=== PATIENT | male | born 1960 | race Caucasian/White ===

== ENCOUNTER 2022-06-27 18:02 | Inpatient (IN) | payer MEDICARE, OTHER ==
[2022-06-27] MEDS ORDERED: PNEUMONIA PROTOCOL UTILIZED 1 EACH MISC PO PRN (19:26)
--- NOTE | 2022-06-27 19:27 | ED ---
General Adult HPI - General Chief complaint: Abdominal Pain Stated complaint: transfer, AAA surgery Time Seen by Provider: 06/27/22 18:05 Source: patient, family, RN/MD (Spoke with practitioner Yamil prior to patient transferred), EMS, RN notes reviewed Mode of arrival: EMS Limitations: no limitations - History of Present Illness Initial comments: Patient is a pleasant 59-year-old male presenting to the emergency Department as a transfer from [facility] secondary to concern for abdominal aortic aneurysm. Patient does have known history of this. Patient did have abdominal discomfort and did have computed tomography scan done showing increased size of abdominal aortic aneurysm. There is also noted pneumonia. Patient states discomfort is mild at this time. Patient did have temperature of 100.0. - Related Data Home Medications Medication Instructions Recorded Confirmed Losartan [Cozaar] 50 mg PO DAILY 12/10/15 12/28/15 Sertraline [Zoloft] 50 mg PO DAILY 12/10/15 12/28/15 amLODIPine [Norvasc] 5 mg PO DAILY 12/10/15 12/28/15 Allergies Allergy/AdvReac Type Severity Reaction Status Date / Time No Known Allergies Allergy Verified 12/28/15 09:10 Review of Systems ROS Statement: Those systems with pertinent positive or pertinent negative responses have been documented in the HPI. ROS Other: All systems not noted in ROS Statement are negative. Constitutional: Reports: as per HPI, fever Eyes: Denies: eye pain ENT: Denies: ear pain Respiratory: Reports: cough. Denies: dyspnea Cardiovascular: Denies: chest pain Endocrine: Denies: fatigue Gastrointestinal: Reports: as per HPI, abdominal pain Genitourinary: Denies: dysuria Musculoskeletal: Denies: back pain Skin: Denies: rash Neurological: Denies: weakness Past Medical History Past Medical History: Hypertension History of Any Multi-Drug Resistant Organisms: None Reported Past Surgical History: Hernia Repair, Orthopedic Surgery Additional Past Surgical History / Comment(s): HERNIA X3, LEFT SHOULDER Past Anesthesia/Blood Transfusion Reactions: No Reported Reaction Past Psychological History: Depression Past Alcohol Use History: Rare Additional Past Alcohol Use History / Comment(s): STARTED SMOKING AT AGE 18 SMOKES 1PPD Past Drug Use History: None Reported - Past Family History Mother Family Medical History: No Reported History General Exam Limitations: no limitations General appearance: alert, in no apparent distress Head exam: Present: normocephalic Eye exam: Present: normal appearance Neck exam: Present: normal inspection Respiratory exam: Present: normal lung sounds bilaterally Cardiovascular Exam: Present: regular rate, normal rhythm Expanded Peripheral pulses: 2+: Posterior Tibialis (R), Posterior Tibialis (L) GI/Abdominal exam: Present: soft, pulsatile mass. Absent: tenderness Extremities exam: Present: normal inspection Neurological exam: Present: alert. Absent: motor sensory deficit Psychiatric exam: Present: normal affect, normal mood Skin exam: Present: normal color Course Vital Signs 06/27/22 18:12 Temperature 98.3 F Pulse Rate 78 Respiratory 20 Rate Blood Pressure 140/92 O2 Sat by Pulse 98 Oximetry Medical Decision Making - Medical Decision Making Was pt. sent in by a medical professional or institution (, PA, MARINE DIESEL TECHNICIAN, urgent care, hospital, or retirement...) When possible be specific @ -Patient was sent from [facility]. Spoke with practitioner Yamil. Did you speak to anyone other than the patient for history (EMS, parent, family, police, friend...)? What history was obtained from this source @ -Spoke with Yamil from [facility] prior to transfer. I also did speak with Dr. Venkat erickson, who did go to evaluate patient. Did you review nursing and triage notes (agree or disagree)? Why? @ -I reviewed and agree with nursing and triage notes Were old charts reviewed (outside hosp., previous admission, EMS record, old EKG, old radiological studies, urgent care reports/EKG's, retirement records)? Report findings @ -Review chart from transfer from [facility] Differential Diagnosis (chest pain, altered mental status, abdominal pain women, abdominal pain men, vaginal bleeding, weakness, fever, dyspnea, syncope, he adache, dizziness, GI bleed, back pain, seizure, CVA, palpatations, mental health)? @ -Differential Abdominal Pain Men: Appendicitis, cholecystitis, diverticulosis, ischemic bowel, pancreatitis, hepatitis, UTI, gastroenteritis, AAA, incarcerated hernia, bowel obstruction, constipation, inflammatory bowel, hepatitis, peptic ulcer disease, splenic infarction, perforated viscus, testicular torsion, this is not meant to be an all-inclusive list EKG interpreted by me (3pts min.). @ -Sinus rhythm rate 68. Normal axis. Septal Q waved V1 and V2. nOn specific T waves. X-rays interpreted by me (1pt min.). @ -None done CT interpreted by me (1pt min.). @ -Reviewed report U/S interpreted by me (1pt. min.). @ -None done What testing was considered but not performed or refused? (CT, X-rays, U/S, labs)? Why? @ -None What meds were considered but not given or refused? Why? @ -None Did you discuss the management of the patient with other professionals (professionals i.e. DrMina, PA, MARINE DIESEL TECHNICIAN, lab, RT, psych nurse, social sciences instructor, wrapper operator, teacher, account officer, director of casework services)? Give summary @ -Case was discussed with practitioner Yamil at [facility] as well as Dr. Alesia guerrero. Case also discussed with practitioner Paris Cuadra, covering for Dr. Bloom, who will admit covering for Dr. Verma Was smoking cessation discussed for >3mins.? @ -I discussed smoking cessation for greater than 3 minutes. The risk of smoking were discussed with the patient including but not limited to risks of cancer, stroke, coronary artery disease and COPD. Also discussed with patient were multiple methods of quitting smoking. Lastly we discussed the financial cost of smoking. Was critical care preformed (if so, how long)? @ -No Were there social determinants of health that impacted care today? How? (Homelessness, low income, unemployed, alcoholism, drug addiction, transportation, low edu. Level, literacy, decrease access to med. care, long term, rehab)? @ -No Was there de-escalation of care discussed even if they declined (Discuss DNR or withdrawal of care, Hospice)? DNR status @ -No What co-morbidities impacted this encounter? (DM, HTN, Smoking, COPD, CAD, Cancer, CVA, ARF, Chemo, Hep., AIDS, mental health diagnosis, sleep apnea, morbid obesity)? @ -Patient also has pneumonia and history of AAA Was patient admitted / discharged? Hospital course, mention meds given and route, prescriptions, significant lab abnormalities, going to OR and other pertinent info. @ -Patient and family made aware of plan. Patient will be admitted. Undiagnosed new problem with uncertain prognosis? @ -No Drug Therapy requiring intensive monitoring for toxicity (Heparin, Nitro, Insulin, Cardizem)? @ -No Were any procedures done? @ -No Diagnosis/symptom? @ -One abdominal aortic aneurysm. 2 pneumonia Acute, or Chronic, or Acute on Chronic? @ -Acute on chronic, acute Uncomplicated (without systemic symptoms) or Complicated (systemic symptoms)? @ -Uncomplicated at this time Side effects of treatment? @ -No Exacerbation, Progression, or Severe Exacerbation? @ -Progression, na Poses a threat to life or bodily function? How? (Chest pain, USA, SC, pneumonia, PE, COPD, DKA, ARF, appy, cholecystitis, CVA, Diverticulitis, Homicidal, Suicidal, threat to staff... and all critical care pts) @ -Yes this poses a high threat to life Computed tomography scan from [facility] shows prerenal fusiform aneurysmal dilation up to 6.1 cm with neural thrombus. Right lower lobe medial airspace disease. Left distal superficial femoral artery short segment of occlusion with reconstitution. Patient did receive IV antibiotics prior to transfer. Disposition Clinical Impression: Abdominal aortic aneurysm, Pneumonia Disposition: ADMITTED IP TO THIS HOSP Is patient prescribed a controlled substance at d/c from ED?: No Referrals: Puma Kimble MD [Primary Care Provider] - 1-2 days Time of Disposition: 19:25
--- NOTE | 2022-06-27 20:39 | P.GSCN ---
History of Present Illness Consult date: 06/27/22 Reason for Consult: Enlarging AAA History of present illness: 61 year old gentleman with history of AAA who was previously followed by Dr. Gallardo with yearly ultrasounds presented to [facility] with acute onset of abdominal pain and worsening lower back pain. The last time he was seen in Dr. Gallardo's office was 4 years ago and at that time his AAA was 3.7 cm and when worked up at [facility] the CT with contrast demonstrated a 6.1cm AAA. He was seen in the ER at [facility] and due to the increase in size and his potential symptoms it was determined to transfer to [facility] for admission, medical clearance and endovascular treatment. The patient states his pain has improved since being seen in the ER. He denies any fevers, chills, chest pain or shortness of breath. Review of Systems All systems: negative (what is mentioned in the PMH or HPI) Past Medical History Past Medical History: Hypertension History of Any Multi-Drug Resistant Organisms: None Reported Past Surgical History: Hernia Repair, Orthopedic Surgery Additional Past Surgical History / Comment(s): HERNIA X3, LEFT SHOULDER Past Anesthesia/Blood Transfusion Reactions: No Reported Reaction Past Psychological History: Depression Past Alcohol Use History: Rare Additional Past Alcohol Use History / Comment(s): STARTED SMOKING AT AGE 18 SMOKES 1PPD Past Drug Use History: None Reported - Past Family History Mother Family Medical History: No Reported History Medications and Allergies Home Medications Medication Instructions Recorded Confirmed Type Losartan [Cozaar] 50 mg PO DAILY 12/10/15 06/27/22 History Sertraline [Zoloft] 50 mg PO DAILY 12/10/15 06/27/22 History amLODIPine [Norvasc] 10 mg PO DAILY 06/27/22 06/27/22 History Allergies Allergy/AdvReac Type Severity Reaction Status Date / Time No Known Allergies Allergy Verified 06/27/22 19:40 Surgical - Exam Vital Signs Temp Pulse Resp BP Pulse Ox 98.3 F 78 20 140/92 98 06/27/22 18:12 06/27/22 18:12 06/27/22 18:12 06/27/22 18:12 06/27/22 18:12 - General well developed, well nourished, no distress - Eyes PERRL - ENT normal pinna, normal nares - Neck no masses - Respiratory normal expansion, normal respiratory effort - Cardiovascular Rhythm: regular - Abdomen Abdomen: soft, non tender Hernia: none - Integumentary no rash, no growths - Neurologic normal coordination, normal sensation - Musculoskeletal normal gait - Psychiatric oriented to time, oriented to person, oriented to place, speech is normal Abdominal pulsatile mass noted Palpable femoral, DP and PT pulses Assessment and Plan Assessment: 1. AAA with possible rapid expansion 2. Chronic back pain Plan: Recommend admission for continued monitoring and pain control. Will need medical workup for clearance for EVAR Plan for EVAR later this week unless patient symptoms worsen.
[2022-06-27] MEDS: SODIUM CHLORIDE 0.9% 1,000 ML IV SCH (20:45)
[2022-06-28] MEDS: SODIUM CHLORIDE 0.9% 1,000 ML IV SCH (04:44)
--- NOTE | 2022-06-28 08:09 | XR ---
EXAMINATION TYPE: XR chest 2V DATE OF EXAM: 06/28/2022 7:11 AM COMPARISON: None TECHNIQUE: XR chest 2V Frontal and lateral views of the chest. CLINICAL INDICATION:Male, 61 years old with history of pneumonia; FINDINGS: Lungs/Pleura: There is no evidence of pleural effusion, focal consolidation, or pneumothorax. Pulmonary vascularity: Unremarkable. Heart/mediastinum: Cardiomediastinal silhouette is unremarkable. Musculoskeletal: No acute osseous pathology. IMPRESSION: No acute cardiopulmonary disease/process.
[2022-06-28 08:30] LABS: HCT 35.9 % (39.0-53.0); HGB 11.7 gm/dL (13.0-17.5); MCH 30.6 pg (25.0-35.0); MCHC 32.4 g/dL (31.0-37.0); MCV 94.3 fL (80.0-100.0); Mean Platelet Volume 6.9; Platelet Count 314 k/uL (150-450); RBC 3.81 m/uL (4.30-5.90); RDW 14.2 % (11.5-15.5); WBC 7.6 k/uL (3.8-10.6)
[2022-06-28 08:54] LABS: African American GFR (CKD) >90 (>60 ml/min/1.73 sqM); Anion Gap 6 mmol/L; Blood Urea Nitrogen 11 mg/dL (9-20); Calcium 8.5 mg/dL (8.4-10.2); Carbon Dioxide 24 mmol/L (22-30); Chloride 109 mmol/L (98-107); Glucose 90 mg/dL (74-99); Non-African American GFR(CKD) >90 (>60 ml/min/1.73 sqM); Potassium 4.6 mmol/L (3.5-5.1); Sodium 139 mmol/L (137-145)
--- NOTE | 2022-06-28 09:01 | P.PN ---
Subjective Progress Note Date: 06/28/22 Principal diagnosis: AAA She was seen and examined in the emergency room waiting for a bed on the unit. He states today he is feeling better. He has no abdominal pain or back pain. He denies any chest pain or shortness of breath. He has been afebrile. He states that he did have fevers chills the day before coming into the emergency department. Chest x-ray reports no acute cardiopulmonary disease or process. WBC 7.6 hemoglobin 11.7 platelet count 314,000, comprehensive panel currently pending. Patient is currently on ceftriaxone. Vital signs are stable respiratory rate 16, blood pressure 129 or 81 oxygen 97% on room air. Objective - Vital Signs Vital signs: Vital Signs Temp 98 F 06/28/22 03:23 Pulse 64 06/28/22 03:23 Resp 16 06/28/22 03:23 BP 129/81 06/28/22 03:23 Pulse Ox 97 06/28/22 07:38 FiO2 Intake & Output 06/27/22 06/28/22 06/28/22 18:59 06:59 18:59 Weight 66.224 kg Other: Voiding Method Toilet # Voids 1 - Exam General appearance: The patient is alert, oriented, appears in no acute distress. HET: Head is normocephalic and atraumatic. Neck: Supple. Heart: Regular. Lungs: Equal expansion, normal respiratory effort. Abdomen: Soft, nontender, pulsatile mass palpated, nondistended. Extremities: Normal skin color and turgor. No cyanosis, rash, ulceration, clubbing, or edema. Palpable femoral, PT and DP pulses. Good capillary refill.. Neurological: No focal deficits. Strength and sensation are grossly intact. Assessment and Plan Assessment: 1. AAA with possible rapid expansion 2. Chronic back pain 3. Nicotine dependence Plan: 1. Continue symptomatic and supportive care 2. Nicotine patch ordered 3. Patient may have a heart healthy diet 4. 2-D echocardiogram ordered 5. Will need medical clearance for planned endovascular abdominal aortic repair 06/30/2022 Thank you for this consultation, we will continue to follow. The impression and plan of care has been dictated as directed. Dr. Soliz I performed a history and examination of this patient, discussed the same with the dictator. I agree with the dictator's note ,documented as a scribe. Any additional findings or plans will be noted.
[2022-06-28] MEDS: SERTRALINE 50 MG TAB PO SCH (09:24)
[2022-06-28] MEDS: amLODIPine 10 MG TAB PO SCH (09:25)
[2022-06-28] MEDS: NICOTINE 21MG/24HR PATCH TRANSDERM SCH (09:25)
[2022-06-28] MEDS: LOSARTAN 50 MG TAB PO SCH (09:25)
[2022-06-28] MEDS: AZITHROMYCIN 500 MG TAB PO SCH (09:25)
[2022-06-28] MEDS ORDERED: ACETAMINOPHEN TAB 325 MG TAB PO PRN (09:53)
--- NOTE | 2022-06-28 15:43 | P.HPIM ---
History of Present Illness H&P Date: 06/28/22 This is a 61 year old male patient of Dr. Kimble, with medical history of hypertension, depression, daily tobacco use reports smoking 1 pack per day for the last 43 years. Has undergone hernia repair x 7. He presents to the emergency room from [facility] with concern for abdominal aortic aneurysm that has increased in size on CT scan performed at outside facility. He has known history of AAA, and presented with abdominal pain and lower back pain of acute onset to outside facility. AAA is noted to be at 6.1 cm in size with prior CT showing 3.7cm. He has followed with Dr. Gallardo in the past. CT also showed some opacity in the right lower lobe correlate for pneumonia and patient was febrile on admission with temperature of 100.0. He has remained afebrile since. Follow up chest xray showing no acute process at this facility. His white count is stable at 7.6, hemoglobin of 11.7, his chemistry panel is essentially unremarkable with chloride of 109 likely from receiving receiving IV fluids. He has been started on IV ceftriaxone and PO azithromycin empirically and resumed on home medications including losartan, amlodipine. Blood pressure remains stable today at 129/78. Will check a procalcitonin level and likely can stop antibiotics with no evidence for pneumonia at this time. He has been evaluated by vascular surgery and scheduled for endovascular abdominal aortic aneurysm repair on 06/30/[address] Fiore. Patient will be further evaluated for medical clearance, echocardiogram is pending at this time. REVIEW OF SYSTEMS: CONSTITUTIONAL: No fever, no malaise, no fatigue. HEENT: No recent visual problems or hearing problems. Denied any sore throat. CARDIOVASCULAR: No chest pain, orthopnea, PND, no palpitations, no syncope. PULMONARY: No shortness of breath, no cough, no hemoptysis. GASTROINTESTINAL: No diarrhea, no nausea, no vomiting, no abdominal pain. NEUROLOGICAL: No headaches, no weakness, no numbness. HEMATOLOGICAL: Denies any bleeding or petechiae. GENITOURINARY: Denies any burning micturition, frequency, or urgency. MUSCULOSKELETAL/RHEUMATOLOGICAL: Denies any joint pain, swelling, or any muscle pain. ENDOCRINE: Denies any polyuria or polydipsia. The rest of the 14-point review of systems is negative. PHYSICAL EXAMINATION: GENERAL: The patient is alert and oriented x3, not in any acute distress. Well developed, well nourished. HEENT: Pupils are round and equally reacting to light. EOMI. No scleral icterus. No conjunctival pallor. Normocephalic, atraumatic. No pharyngeal erythema. No thyromegaly. CARDIOVASCULAR: S1 and S2 present. No murmurs, rubs, or gallops. PULMONARY: Faint Expiratory wheezing right lower lobe ABDOMEN: Soft, nontender, nondistended, normoactive bowel sounds. Abdominal pulsatile mass noted on exam. No palpable organomegaly. MUSCULOSKELETAL: No joint swelling or deformity. EXTREMITIES: No cyanosis, clubbing, or pedal edema. NEUROLOGICAL: Gross neurological examination did not reveal any focal deficits. SKIN: No rashes. Assessment and Plan Assessment Abdominal aortic aneurysm 6.1 cm increasing in size Hypertension stable on current medications which will be continued at this time Right lower lobe opacity on outside CT scan with follow up xray negative for acute findings Current every day smoker counseled extensively on the importance of smoking cessation. Depression, not an active issue will continue on sertraline History of hernia repair x 7 Chronic back pain GI prophylaxis Plan Vascular surgery consultation and patient has been scheduled for aneurysm repair on Sunday06/30/21 Resume home medications Nicotine patch in place Patient has been started on pulmicort and albuterol as needed Procalcitonin level pending for now continue on IV antibiotics empirically Echocardiogram pending Aneurysm repair is considered an emergent surgery and despite the risk should be performed. Patient is considered a moderate operative risk combined with longstanding history of tobacco use. The impression and plan of care has been dictated by Kenya Valdez Nurse Practitioner as directed. Dr. Elena MD I have performed a history and physical examination and medical decision making of this patient, discussed the same with the dictator, and agree with the dictators assessment and plan as written, documented as a scribe. Based on total visit time, I have performed more than 50% of this visit. Past Medical History Past Medical History: Hypertension History of Any Multi-Drug Resistant Organisms: None Reported Past Surgical History: Hernia Repair, Orthopedic Surgery Additional Past Surgical History / Comment(s): HERNIA X3, LEFT SHOULDER Past Anesthesia/Blood Transfusion Reactions: No Reported Reaction Past Psychological History: Depression Smoking Status: Current every day smoker Past Alcohol Use History: Rare Additional Past Alcohol Use History / Comment(s): STARTED SMOKING AT AGE 18 SMOKES 1PPD Past Drug Use History: None Reported - Past Family History Mother Family Medical History: No Reported History Medications and Allergies Home Medications Medication Instructions Recorded Confirmed Type Losartan [Cozaar] 50 mg PO DAILY 12/10/15 06/27/22 History Sertraline [Zoloft] 50 mg PO DAILY 12/10/15 06/27/22 History amLODIPine [Norvasc] 10 mg PO DAILY 06/27/22 06/27/22 History Allergies Allergy/AdvReac Type Severity Reaction Status Date / Time No Known Allergies Allergy Verified 06/27/22 19:40 Physical Exam Vitals: Vital Signs Temp Pulse Pulse Resp BP BP Pulse Ox 06/28/22 09:19 60 15 129/78 97 06/28/22 07:38 97 06/28/22 03:23 98 F 64 16 129/81 96 06/28/22 00:00 98 F 71 14 124/75 98 06/27/22 18:12 98.3 F 78 20 140/92 98 Intake and Output 06/27/22 06/28/22 06/28/22 22:59 06:59 14:59 Other: Voiding Method Toilet # Voids 1 Weight 66.224 kg 66.224 kg Results CBC & Chem 7: 06/28/22 07:58 06/28/22 07:58 Labs: Abnormal Lab Results - Last 24 Hours (Table) 06/28/22 06/28/22 Range/Units 07:58 07:58 RBC 3.81 L (4.30-5.90) m/uL Hgb 11.7 L (13.0-17.5) gm/dL Hct 35.9 L (39.0-53.0) % Chloride 109 H (98-107) mmol/L Thrombosis Risk Factor Assmnt - Choose All That Apply Any of the Below Risk Factors Present?: Yes Each Risk Factor Represents 2 Points: Age 61-74 years Other congenital or acquired thrombophilia - If yes, enter type in comment: No Thrombosis Risk Factor Assessment Total Risk Factor Score: 2 Thrombosis Risk Factor Assessment Level: Low Risk Assessment and Plan Time with Patient: Greater than 30
[2022-06-28] MEDS: BUDESONIDE 0.5 MG/2 ML NEBU INHALATION SCH (21:42)
[2022-06-29] MEDS: PANTOPRAZOLE 40 MG TABLET PO SCH (06:59)
[2022-06-29] MEDS: ALBUTEROL NEBULIZED 2.5 MG/3 ML INHALATION PRN ×2 (07:39→21:01)
[2022-06-29] MEDS: BUDESONIDE 0.5 MG/2 ML NEBU INHALATION SCH ×2 (07:39→21:01)
[2022-06-29 08:12] LABS: Basophils # (A) 0.1 k/uL (0-0.2); Basophils % (A) 1 %; Eosinophils # (A) 0.2 k/uL (0-0.7); Eosinophils % (A) 3 %; HCT 35.8 % (39.0-53.0); HGB 11.9 gm/dL (13.0-17.5); Lymphocytes # (A) 0.8 k/uL (1.0-4.8); Lymphocytes % (A) 13 %; MCH 30.8 pg (25.0-35.0); MCHC 33.1 g/dL (31.0-37.0); MCV 92.8 fL (80.0-100.0); Mean Platelet Volume 7.1; Monocytes # (A) 0.6 k/uL (0-1.0); Monocytes % (A) 8 %; Neutrophils # (A) 5.1 k/uL (1.3-7.7); Neutrophils % (A) 75 %; Platelet Count 316 k/uL (150-450); RBC 3.86 m/uL (4.30-5.90); RDW 13.7 % (11.5-15.5); WBC 6.8 k/uL (3.8-10.6)
[2022-06-29] MEDS: SERTRALINE 50 MG TAB PO SCH (08:15)
[2022-06-29] MEDS: AZITHROMYCIN 500 MG TAB PO SCH (08:15)
[2022-06-29] MEDS: amLODIPine 10 MG TAB PO SCH (08:15)
[2022-06-29] MEDS: NICOTINE 21MG/24HR PATCH TRANSDERM SCH (08:15)
[2022-06-29] MEDS: LOSARTAN 50 MG TAB PO SCH (08:15)
--- NOTE | 2022-06-29 11:27 | P.PN ---
Subjective Progress Note Date: 06/29/22 Patient seen and examined. No complaints. Feeling better overall. Objective - Vital Signs Vital signs: Vital Signs Temp 97.6 F 06/29/22 08:09 Pulse 75 06/29/22 08:09 Resp 20 06/29/22 08:09 BP 136/77 06/29/22 08:09 Pulse Ox 99 06/29/22 08:09 FiO2 21 06/28/22 21:44 Intake & Output 06/28/22 06/29/22 06/29/22 18:59 06:59 18:59 Intake Total 420 540 720 Balance 420 540 720 Weight 66.224 kg Intake: Oral 420 540 720 Other: Voiding Method Urinal Urinal # Voids 1 2 1 - Exam General appearance: The patient is alert, oriented, appears in no acute distress. HET: Head is normocephalic and atraumatic. Neck: Supple. Heart: Regular. Lungs: Equal expansion, normal respiratory effort. Abdomen: Soft, nontender, pulsatile mass palpated, nondistended. Extremities: Normal skin color and turgor. No cyanosis, rash, ulceration, clubbing, or edema. Palpable femoral, PT and DP pulses. Good capillary refill.. Neurological: No focal deficits. Strength and sensation are grossly intact. - Labs CBC & Chem 7: 06/29/22 06:33 06/28/22 07:58 Labs: Abnormal Lab Results - Last 24 Hours (Table) 06/29/22 Range/Units 06:33 RBC 3.86 L (4.30-5.90) m/uL Hgb 11.9 L (13.0-17.5) gm/dL Hct 35.8 L (39.0-53.0) % Lymphocytes # 0.8 L (1.0-4.8) k/uL Microbiology - Last 24 Hours (Table) 06/27/22 20:00 Blood Culture - Preliminary Blood No Growth after 24 hours 06/27/22 19:50 Blood Culture - Preliminary Blood No Growth after 24 hours Assessment and Plan Assessment: Assessment: 1. 6.1 cm AAA with possible rapid expansion 2. Chronic back pain 3. Nicotine dependence Plan: Plan for endovascular flare of abdominal aortic aneurysm tomorrow. Nothing by mouth after midnight.
--- NOTE | 2022-06-29 18:16 | CA ---
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 18 - 58 / 22 - 52 cm??? M-MODE Aortic Root Diameter MM 3.1 cm LA Systolic Diameter MM 4.4 cm LA Ao Ratio MM 1.4 AV Cusp Separation MM 1.5 cm DOPPLER AV Peak Velocity 121.8 cm/s AV Peak Gradient 5.9 mmHg AV Mean Velocity 85.5 cm/s AV Mean Gradient 3.2 mmHg AV Velocity Time Integral 24.1 cm LVOT Peak Velocity 111.3 cm/s LVOT Peak Gradient 5.0 mmHg MV Area PHT 2.6 cm??? Mitral E Point Velocity 71.1 cm/s Mitral A Point Velocity 78.5 cm/s Mitral E to A Ratio 0.9 MV Deceleration Time 295.1 ms MV E' Velocity 7.4 cm/s Mitral E to MV E' Ratio 9.6 TR Peak Velocity 263.8 cm/s TR Peak Gradient 27.8 mmHg Right Ventricular Systolic Press 32.2 mmHg FINDINGS Left Ventricle Normal Left ventricular size, wall thickness, systolic function with no obvious regional wall motion abnormalities. Normal Left ventricular diastolic filling pattern. Left ventricular ejection fraction is estimated at 55-60 %. Right Ventricle Mild right ventricular dilatation. Right ventricular systolic pressure within normal limits. Right Atrium Normal right atrial size. Left Atrium Mildly increased left atrial volume. Mitral Valve Structurally normal mitral valve. No mitral stenosis. Mild mitral regurgitation. Aortic Valve Trileaflet aortic valve. No aortic valve stenosis or regurgitation. Tricuspid Valve Structurally normal tricuspid valve. Mild tricuspid regurgitation. Pulmonic Valve Trace pulmonic regurgitation. Pericardium No pericardial effusion. Aorta Normal size aortic root and proximal ascending aorta. CONCLUSIONS Normal LV systolic function normal RV function Previewed by: Dr. Ivan Bauman MD (Electronically Signed) Final Date: 29 June 2022 18:15
--- NOTE | 2022-06-30 05:44 | P.PN ---
Subjective Progress Note Date: 06/29/22 This is a 61 year old male patient of Dr. Kimble, with medical history of hypertension, depression, daily tobacco use reports smoking 1 pack per day for the last 43 years. Has undergone hernia repair x 7. He presents to the emergency room from [facility] with concern for abdominal aortic aneurysm that has increased in size on CT scan performed at outside facility. He has known history of AAA, and presented with abdominal pain and lower back pain of acute onset to outside facility. AAA is noted to be at 6.1 cm in size with prior CT showing 3.7cm. He has followed with Dr. Gallardo in the past. CT also showed some opacity in the right lower lobe correlate for pneumonia and patient was febrile on admission with temperature of 100.0. He has remained afebrile since. Follow up chest xray showing no acute process at this facility. His white count is stable at 7.6, hemoglobin of 11.7, his chemistry panel is essentially unremarkable with chloride of 109 likely from receiving receiving IV fluids. He has been started on IV ceftriaxone and PO azithromycin empirically and resumed on home medications including losartan, amlodipine. Blood pressure remains stable today at 129/78. Will check a procalcitonin level and likely can stop antibiotics with no evidence for pneumonia at this time. He has been evaluated by vascular surgery and scheduled for endovascular abdominal aortic aneurysm repair on 06/30/[address] Fiore. Patient will be further evaluated for medical clearance, echocardiogram is pending at this time. 06/29/2022 Patient is seen in follow-up today with no acute overnight issues noted. Patient being followed by vascular surgery with plans for AAA repair tentatively on Sunday. Pro-calcitonin was negative and will discontinue ceftriaxone. Patient is afebrile denies chest pain or shortness of breath. Patient tolerating diet with no reports of nausea or vomiting noted. Patient is becoming somewhat anxious and has some questions about the procedure and wond ering how soon after he can go home. Instructed the patient to ask vascular surgery his questions and concerns once a round. Nursing staff made aware as well. Review of systems: Constitutional: No reports of fatigue, fever, or chills, reports feeling somewhat anxious Cardiovascular: No reports of chest pain or palpitations Respiratory: No reports of shortness of breath or cough GI: No reports of nausea, vomiting, or diarrhea : No reports of dysuria or retention Neurovascular: No reports of weakness or numbness All medications have been reviewed PHYSICAL EXAMINATION: GENERAL: The patient is alert and oriented x3, not in any acute distress. Well developed, well nourished. HEENT: Pupils are round and equally reacting to light. EOMI. No scleral icterus. No conjunctival pallor. Normocephalic, atraumatic. No pharyngeal erythema. No thyromegaly. CARDIOVASCULAR: S1 and S2 present. No murmurs, rubs, or gallops. PULMONARY: Faint Expiratory wheezing right lower lobe ABDOMEN: Soft, nontender, nondistended, normoactive bowel sounds. Abdominal pulsatile mass noted on exam. No palpable organomegaly. MUSCULOSKELETAL: No joint swelling or deformity. EXTREMITIES: No cyanosis, clubbing, or pedal edema. NEUROLOGICAL: Gross neurological examination did not reveal any focal deficits. SKIN: No rashes. Assessment: Abdominal aortic aneurysm 6.1 cm increasing in size Hypertension stable on current medications which will be continued at this time Right lower lobe opacity on outside CT scan with follow up xray negative for acute findings Current every day smoker counseled extensively on the importance of smoking cessation. Depression, not an active issue will continue on sertraline History of hernia repair x 7 Chronic back pain GI prophylaxis Plan: Vascular surgery consultation and patient has been scheduled for aneurysm repair on Sunday06/30/21 Resume home medications Nicotine patch in place Patient has been started on pulmicort and albuterol as needed Procalcitonin level is low and was continued on ceftriaxone and this will be discontinued Echocardiogram shows an EF of 55-60% with mild mitral regurgitation noted Aneurysm repair is considered an emergent surgery and despite the risk, should be performed. Patient is considered a moderate operative risk combined with longstanding history of tobacco use. Patient is aware of the risks versus benefits and still willing to proceed with surgical intervention. Prognosis is guarded The impression and plan of care has been dictated by Arabella Nobles, Nurse Practitioner as directed. Dr. Elena MD I have performed a history and examination and MDM of this patient, discussed the same with the dictator, and agree with the dictator's assessment and plan as written ,documented as a scribe. Based on total visit time, I have performed more than 50% of the visit. Objective - Vital Signs Vital signs: Vital Signs Temp 97.6 F 06/29/22 08:09 Pulse 75 06/29/22 08:09 Resp 20 06/29/22 08:09 BP 136/77 06/29/22 08:09 Pulse Ox 99 06/29/22 08:09 FiO2 21 06/28/22 21:44 Intake & Output 06/28/22 06/29/22 06/29/22 18:59 06:59 18:59 Intake Total 420 540 720 Balance 420 540 720 Weight 66.224 kg Intake: Oral 420 540 720 Other: Voiding Method Urinal Urinal # Voids 1 2 1 - Labs CBC & Chem 7: 06/29/22 06:33 06/28/22 07:58 Labs: Abnormal Lab Results - Last 24 Hours (Table) 06/29/22 Range/Units 06:33 RBC 3.86 L (4.30-5.90) m/uL Hgb 11.9 L (13.0-17.5) gm/dL Hct 35.8 L (39.0-53.0) % Lymphocytes # 0.8 L (1.0-4.8) k/uL Microbiology - Last 24 Hours (Table) 06/27/22 20:00 Blood Culture - Preliminary Blood No Growth after 24 hours 06/27/22 19:50 Blood Culture - Preliminary Blood No Growth after 24 hours
[2022-06-30] MEDS: PANTOPRAZOLE 40 MG TABLET PO SCH (06:59)
[2022-06-30 07:31] LABS: HCT 34.4 % (39.0-53.0); HGB 11.3 gm/dL (13.0-17.5); MCH 30.3 pg (25.0-35.0); MCHC 32.9 g/dL (31.0-37.0); MCV 92.1 fL (80.0-100.0); Mean Platelet Volume 6.8; Platelet Count 319 k/uL (150-450); RBC 3.73 m/uL (4.30-5.90); RDW 13.7 % (11.5-15.5); WBC 6.7 k/uL (3.8-10.6)
[2022-06-30] MEDS: ALBUTEROL NEBULIZED 2.5 MG/3 ML INHALATION PRN (07:46)
[2022-06-30] MEDS: BUDESONIDE 0.5 MG/2 ML NEBU INHALATION SCH ×2 (07:46→20:45)
[2022-06-30 07:53] LABS: African American GFR (CKD) >90 (>60 ml/min/1.73 sqM); Anion Gap 4 mmol/L; Blood Urea Nitrogen 12 mg/dL (9-20); Calcium 8.4 mg/dL (8.4-10.2); Carbon Dioxide 25 mmol/L (22-30); Chloride 108 mmol/L (98-107); Glucose 88 mg/dL (74-99); Non-African American GFR(CKD) >90 (>60 ml/min/1.73 sqM); Potassium 4.5 mmol/L (3.5-5.1); Sodium 137 mmol/L (137-145)
[2022-06-30] MEDS ORDERED: fentaNYL (PF) 50 MCG/ML 2 ML AMP ONE (09:16)
[2022-06-30] MEDS ORDERED: PHENYLEPHRINE-0.9% NACL SYG 1,000 MCG/10 ML SYRINGE ONE (09:16)
[2022-06-30] MEDS ORDERED: LABETALOL 5 MG/ML VIAL MDV ONE (09:16)
[2022-06-30] MEDS ORDERED: SODIUM CHLORIDE 0.9% 1,000 ML IV ONE ×2 (09:16→10:56)
[2022-06-30] MEDS ORDERED: MIDAZOLAM 2 MG/2 ML VIAL ONE (09:16)
[2022-06-30] MEDS ORDERED: LIDOCAINE 2% INJ 20 MG/ML (2 ML VIAL) ONE (09:16)
[2022-06-30] MEDS ORDERED: HEPARIN SODIUM,PORCINE 10,000 UNIT/ML 1 ML VIAL ONE (09:16)
[2022-06-30] MEDS ORDERED: PROPOFOL 10 MG/ML 20 ML VIAL IV ONE (09:16)
[2022-06-30] MEDS ORDERED: GLYCOPYRROLATE 0.2 MG/ML 2 ML VIAL ONE (09:16)
[2022-06-30] MEDS ORDERED: NEOSTIGMINE 1 MG/ML 10 ML VIAL ONE (09:16)
[2022-06-30] MEDS ORDERED: ROCURONIUM 10 MG/ML (5 ML VIAL) IV ONE (09:16)
[2022-06-30] MEDS ORDERED: IOPAMIDOL-250 100ML BTL IV ONE ×2 (10:54)
[2022-06-30] MEDS ORDERED: NALOXONE 0.4 MG/ML 1 ML VIAL IVP PRN (11:00)
--- NOTE | 2022-06-30 11:07 | P.OP ---
Description of Procedure: Date: 06/30/2022 Preoperative diagnosis: Symptomatic Infrarenal 6.1 cm AAA Postoperative diagnosis: Same Procedure: 1. Percutaneous Endovascular aortic repair with [place] device. 2. Ultrasound-guided bilateral common femoral artery access Surgeon: Adebayo LOMAX Anesthesia: General Estimated blood loss: 5 mL Complications: None Condition: Stable Disposition: Multiphasic DP and PT signal Indications: 61-year-old gentleman with history of AAA previously seen 4 years ago and at that time it measured 3.6 cm. He was recently seen in [facility] due to abdominal pain and back pain and was found to have an aneurysm now measuring 6.1 cm. Due to his symptoms and increased size he was transferred to [facility] for definitive repair. He presents today for EVAR. Operative narrative: After written and informed consent was obtained from the patient all risks benefits and complications were described the patient was brought to the [facility] [employer] and laid in a supine position. The area of the groins were prepped and draped in usual sterile fashion after appropriate anesthetic was performed per the anesthesiologist. A timeout was performed in normal fashion and antibiotics were administered prior to incisions. Utilizing ultrasound bilateral common femoral arteries were visualized demonstrating patency with minimal calcification. Under ultrasound guidance utilizing a multipurpose needle bilateral common femoral arteries were accessed and guidewire was placed followed by deployment of 2 Perclose closure devices for each femoral artery. Utilizing Seldinger technique and 8-[place]ond[place] sheath was then placed and patient was administered heparin and followed with ACTs. 035 Glidewire was then placed up the right femoral sheath and exchanged for a Lunderquist wire through an angled glide catheter. The last femoral artery was then utilized and guidewire was placed followed by pigtail catheter and aortogram was obtained. Utilizing the Lunderquist wire a 26 mm main body device was then loaded over the guidewire after the 8-Honduran sheath was removed. Delivery system was then placed 1 cm proximal to the intended landing site and the aortic body was oriented for appropriate access for the contralateral limb. Delivery system was then retracted out of the sheath and the aortic body radio paque markers were verified to be in the correct position. First segment of the graft was then deployed in normal fashion by releasing and pulling the knob in normal fashion. Balloon injection port was then inflated utilizing a 4-1 saline contrast mixture in order to open the mid crown. Balloon was then deflated. Precise positioning was then performed with utilizing the radiopaque markers and parallax was removed and our to land at the renal arteries. Pigtail catheter was then retracted away from the proximal stent and the proximal stent was released in normal fashion. Polymer was then utilized and filled through the polymer port which was visualized under fluoroscopy. The stiff Lunderquist wire was then retracted within the ipsilateral limb. Attention was then placed to accessing the contralateral limb. Utilizing the Glidewire and angled glide catheter the contralateral limb was accessed and pigtail catheter was placed. Pigtail catheter was then spun to verify intragraft cannulation. A stiff wire was then placed within the pigtail catheter and retrograde angiogram was obtained demonstrating the internal iliac artery takeoff. Measurements were obtained and a 16 x 140 mm Ovation limb was chosen to be deployed and deployed in normal fashion. Once completed the aortic main body was completely deployed in normal fashion. Utilizing the balloon balloon angioplasty was performed at the ring to further mold the polymer to the aortic neck. Once completed the aortic body deployment sheath was removed in normal fashion. Pigtail catheter was then placed over the Lunderquist wire and retrograde angiogram was obtained with measurements to the internal iliac artery on the ipsilateral limb. A 14 x 140 mm Ovation limb was chosen and deployed in normal fashion. Once completed two 12 x 40mm balloons were placed up each iliac limb and balloon angioplasty was performed through its entirety. Once completed balloons were removed and pigtail catheter was placed above the graft and final angiogram was obtained demonstrating exclusion of the aneurysm with no evidence of endoleak's. All guidewires and catheters were then removed and the Perclose closure devices were closed in normal fashion. The areas were then cleansed and dressings were placed. The patient tolerated procedure well and had palpable DP and PT pulse on the right and DP on the left. Pulse on the left was slightly diminished and therefore ultrasound was performed at the access site which demonstrated widely patent area as well as distal to the percutaneous closure devices. Multiphasic signal noted distally. He was then sent to PACU for recovery.
--- NOTE | 2022-06-30 11:19 | IR ---
EXAMINATION TYPE: IR stent intravas non coronary DATE OF EXAM: 06/30/2022 COMPARISON: NONE HISTORY: Fluoroscopy time. Fluoroscopy was provided to the referring clinician.
[2022-06-30 12:01] LABS: Basophils # (A) 0.1 k/uL (0-0.2); Basophils % (A) 1 %; Eosinophils # (A) 0.1 k/uL (0-0.7); Eosinophils % (A) 2 %; HCT 31.7 % (39.0-53.0); HGB 10.4 gm/dL (13.0-17.5); Lymphocytes # (A) 0.9 k/uL (1.0-4.8); Lymphocytes % (A) 12 %; MCHC 32.9 g/dL (31.0-37.0); Mean Platelet Volume 7.5; Monocytes # (A) 0.4 k/uL (0-1.0); Monocytes % (A) 5 %; Neutrophils # (A) 5.7 k/uL (1.3-7.7); Neutrophils % (A) 79 %; Platelet Count 298 k/uL (150-450); RBC 3.48 m/uL (4.30-5.90); RDW 14.1 % (11.5-15.5); WBC 7.2 k/uL (3.8-10.6)
[2022-06-30 13:13] LABS: African American GFR (CKD) >90 (>60 ml/min/1.73 sqM); Anion Gap 5 mmol/L; Blood Urea Nitrogen 10 mg/dL (9-20); Calcium 7.5 mg/dL (8.4-10.2); Carbon Dioxide 20 mmol/L (22-30); Chloride 113 mmol/L (98-107); Glucose 111 mg/dL (74-99); Non-African American GFR(CKD) >90 (>60 ml/min/1.73 sqM); Potassium 4.1 mmol/L (3.5-5.1); Sodium 138 mmol/L (137-145)
[2022-06-30] MEDS: NICOTINE 21MG/24HR PATCH TRANSDERM SCH (13:23)
[2022-06-30] MEDS: LOSARTAN 50 MG TAB PO SCH (13:23)
[2022-06-30] MEDS: amLODIPine 10 MG TAB PO SCH (13:23)
[2022-06-30] MEDS: SERTRALINE 50 MG TAB PO SCH (13:23)
[2022-06-30] MEDS: HYDROcodone/APAP 5-325MG 1 EACH TAB PO PRN ×3 (13:23→21:14)
[2022-06-30] MEDS: SODIUM CHLORIDE 0.9% 1,000 ML in EMPTY BAG 1 BAG IV SCH (13:23)
[2022-06-30] MEDS ORDERED: ONDANSETRON 4 MG/2 ML VIAL IVP PRN (14:43)
[2022-06-30] MEDS ORDERED: ONDANSETRON 4 MG/2 ML VIAL ONE (14:44)
--- NOTE | 2022-06-30 15:28 | P.PN ---
Subjective Progress Note Date: 06/30/22 This is a 61 year old male patient of Dr. Kimble, with medical history of hypertension, depression, daily tobacco use reports smoking 1 pack per day for the last 43 years. Has undergone hernia repair x 7. He presents to the emergency room from [facility] with concern for abdominal aortic aneurysm that has increased in size on CT scan performed at outside facility. He has known history of AAA, and presented with abdominal pain and lower back pain of acute onset to outside facility. AAA is noted to be at 6.1 cm in size with prior CT showing 3.7cm. He has followed with Dr. Gallardo in the past. CT also showed some opacity in the right lower lobe correlate for pneumonia and patient was febrile on admission with temperature of 100.0. He has remained afebrile since. Follow up chest xray showing no acute process at this facility. His white count is stable at 7.6, hemoglobin of 11.7, his chemistry panel is essentially unremarkable with chloride of 109 likely from receiving receiving IV fluids. He has been started on IV ceftriaxone and PO azithromycin empirically and resumed on home medications including losartan, amlodipine. Blood pressure remains stable today at 129/78. Will check a procalcitonin level and likely can stop antibiotics with no evidence for pneumonia at this time. He has been evaluated by vascular surgery and scheduled for endovascular abdominal aortic aneurysm repair on 06/30/[address] Fiore. Patient will be further evaluated for medical clearance, echocardiogram is pending at this time. 06/29/2022 Patient is seen in follow-up today with no acute overnight issues noted. Patient being followed by vascular surgery with plans for AAA repair tentatively on Sunday. Pro-calcitonin was negative and will discontinue ceftriaxone. Patient is afebrile denies chest pain or shortness of breath. Patient tolerating diet with no reports of nausea or vomiting noted. Patient is becoming somewhat anxious and has some questions about the procedure and wond ering how soon after he can go home. Instructed the patient to ask vascular surgery his questions and concerns once a round. Nursing staff made aware as well. 06/30/2022 Patient is seen and evaluated in follow-up this morning early nothing by mouth scheduled for AAA repair with vascular surgery. Will await surgical report. Labs reviewed and within normal limits this morning vital signs being stable throughout the night. Patient is agreeable to the procedure and has signed consent. Follow-up with vascular surgery. Review of systems: Constitutional: No reports of fatigue, fever, or chills, reports feeling somewhat anxious Cardiovascular: No reports of chest pain or palpitations Respiratory: No reports of shortness of breath or cough GI: No reports of nausea, vomiting, or diarrhea : No reports of dysuria or retention Neurovascular: No reports of weakness or numbness All medications have been reviewed PHYSICAL EXAMINATION: GENERAL: The patient is alert and oriented x3, not in any acute distress. Well developed, well nourished. HEENT: Pupils are round and equally reacting to light. EOMI. No scleral icterus. No conjunctival pallor. Normocephalic, atraumatic. No pharyngeal erythema. No thyromegaly. CARDIOVASCULAR: S1 and S2 present. No murmurs, rubs, or gallops. PULMONARY: Faint Expiratory wheezing right lower lobe ABDOMEN: Soft, nontender, nondistended, normoactive bowel sounds. Abdominal pulsatile mass noted on exam. No palpable organomegaly. MUSCULOSKELETAL: No joint swelling or deformity. EXTREMITIES: No cyanosis, clubbing, or pedal edema. NEUROLOGICAL: Gross neurological examination did not reveal any focal deficits. SKIN: No rashes. Assessment: Abdominal aortic aneurysm 6.1 cm increasing in size Hypertension stable on current medications which will be continued at this time Right lower lobe opacity on outside CT scan with follow up xray negative for acute findings Current every day smoker counseled extensively on the importance of smoking c essation. Depression, not an active issue will continue on sertraline History of hernia repair x 7 Chronic back pain GI prophylaxis Plan: Vascular surgery following an scheduled for aneurysm repair today will await surgical report. Resume home medications Patient has been started on pulmicort and albuterol as needed Echocardiogram shows an EF of 55-60% with mild mitral regurgitation noted Aneurysm repair is considered an emergent surgery and despite the risk, should be performed. Patient is considered a moderate operative risk combined with longstanding history of tobacco use. Patient is aware of the risks versus benefits and willing to proceed with surgical intervention. Patient scheduled for surgery this morning and will await report Recommend follow-up labs in a.m. Patient will be cleared for discharge once cleared by vascular surgery Prognosis is guarded The impression and plan of care has been dictated by Arabella Nobles, Nurse Practitioner as directed. Dr. Elena MD I have performed a history and examination and MDM of this patient, discussed the same with the dictator, and agree with the dictator's assessment and plan as written ,documented as a scribe. Based on total visit time, I have performed more than 50% of the visit. Objective - Vital Signs Vital signs: Vital Signs Temp 97.2 F L 06/30/22 04:00 Pulse 60 06/30/22 08:00 Resp 18 06/30/22 04:00 BP 101/69 06/30/22 04:00 Pulse Ox 96 06/30/22 07:48 FiO2 21 06/30/22 07:48 Intake & Output 06/29/22 06/30/22 06/30/22 18:59 06:59 18:59 Intake Total 1130 Balance 1130 Intake: Intake, IV Titration 50 Amount cefTRIAXone 2 gm In 50 Sodium Chloride 0.9% 50 ml @ 100 mls/hr IVPB Q24HR CHAD Rx#:[id number] Oral 1080 Other: Voiding Method Urinal # Voids 1 1 - Labs CBC & Chem 7: 06/30/22 11:40 06/30/22 11:40 Labs: Abnormal Lab Results - Last 24 Hours (Table) 06/30/22 06/30/22 Range/Units 06:17 06:17 RBC 3.73 L (4.30-5.90) m/uL Hgb 11.3 L (13.0-17.5) gm/dL Hct 34.4 L (39.0-53.0) % Chloride 108 H (98-107) mmol/L Microbiology - Last 24 Hours (Table) 06/29/22 11:20 Gram Stain - Preliminary Sputum Sputum Culture - Preliminary 06/27/22 20:00 Blood Culture - Preliminary Blood No Growth after 48 hours 06/27/22 19:50 Blood Culture - Preliminary Blood No Growth after 48 hours
[2022-06-30] MEDS ORDERED: SODIUM CHLORIDE 0.9% 500 ML 500 ML IV ONE (18:24)
[2022-06-30] MEDS ORDERED: METOCLOPRAMIDE 5 MG/ML 2 ML VIAL IVP PRN (18:30)
[2022-06-30 18:43] LABS: Basophils % (A) 0 %; Eosinophils % (A) 0 %; HCT 33.3 % (39.0-53.0); HGB 10.7 gm/dL (13.0-17.5); Lymphocytes # (A) 0.5 k/uL (1.0-4.8); Lymphocytes % (A) 4 %; MCH 30.2 pg (25.0-35.0); MCHC 32.2 g/dL (31.0-37.0); MCV 93.9 fL (80.0-100.0); Monocytes # (A) 0.5 k/uL (0-1.0); Monocytes % (A) 4 %; Neutrophils # (A) 10.3 k/uL (1.3-7.7); Neutrophils % (A) 90 %; Platelet Count 244 k/uL (150-450); RBC 3.55 m/uL (4.30-5.90); RDW 14.1 % (11.5-15.5); WBC 11.4 k/uL (3.8-10.6)
[2022-06-30 18:53] LABS: African American GFR (CKD) >90 (>60 ml/min/1.73 sqM); Anion Gap 5 mmol/L; Blood Urea Nitrogen 13 mg/dL (9-20); Calcium 7.9 mg/dL (8.4-10.2); Carbon Dioxide 20 mmol/L (22-30); Chloride 112 mmol/L (98-107); Glucose 134 mg/dL (74-99); Non-African American GFR(CKD) >90 (>60 ml/min/1.73 sqM); Sodium 137 mmol/L (137-145)
[2022-07-01 04:06] VITALS: TEMP 98.2
[2022-07-01] MEDS: PANTOPRAZOLE 40 MG TABLET PO SCH (06:37)
[2022-07-01 07:19] LABS: Basophils % (A) 0 %; Eosinophils % (A) 0 %; HCT 31.4 % (39.0-53.0); HGB 10.4 gm/dL (13.0-17.5); Lymphocytes % (A) 10 %; MCH 30.3 pg (25.0-35.0); MCV 91.7 fL (80.0-100.0); Mean Platelet Volume 7.3; Monocytes # (A) 0.6 k/uL (0-1.0); Monocytes % (A) 7 %; Neutrophils # (A) 7.8 k/uL (1.3-7.7); Neutrophils % (A) 81 %; Platelet Count 252 k/uL (150-450); RBC 3.43 m/uL (4.30-5.90); RDW 13.6 % (11.5-15.5); WBC 9.7 k/uL (3.8-10.6)
[2022-07-01] MEDS: BUDESONIDE 0.5 MG/2 ML NEBU INHALATION SCH (07:33)
[2022-07-01] MEDS: ALBUTEROL NEBULIZED 2.5 MG/3 ML INHALATION PRN (07:33)
[2022-07-01 07:35] VITALS: BP 127/68; RESP 18
[2022-07-01] MEDS: SODIUM CHLORIDE 0.9% 1,000 ML in EMPTY BAG 1 BAG IV SCH ×2 (07:36→13:56)
[2022-07-01 07:37] VITALS: PULSE 64
[2022-07-01] MEDS: LOSARTAN 50 MG TAB PO SCH (07:39)
[2022-07-01] MEDS: NICOTINE 21MG/24HR PATCH TRANSDERM SCH (07:39)
[2022-07-01] MEDS: amLODIPine 10 MG TAB PO SCH (07:39)
[2022-07-01] MEDS: SERTRALINE 50 MG TAB PO SCH (07:39)
[2022-07-01 07:44] LABS: African American GFR (CKD) >90 (>60 ml/min/1.73 sqM); Anion Gap 3 mmol/L; Blood Urea Nitrogen 13 mg/dL (9-20); Calcium 8.3 mg/dL (8.4-10.2); Carbon Dioxide 24 mmol/L (22-30); Chloride 109 mmol/L (98-107); Glucose 99 mg/dL (74-99); Non-African American GFR(CKD) >90 (>60 ml/min/1.73 sqM); Potassium 4.6 mmol/L (3.5-5.1); Sodium 136 mmol/L (137-145)
== END 2022-07-01 14:19 | disposition home or self-care (01) | DRG 269 ==
LOC: SUPCPDRO 18:02 → EC 18:02 → 3SCARD 19:28
PROVIDERS: ADMIT Hospitalist; ATTEND Hospitalist
PROC: 04V03DZ Restriction of Abdominal Aorta with Intraluminal Device, Percutaneous Approach (ICD-10-PCS; principal; 2022-06-30 09:30)
DX: I71.40 Abdominal aortic aneurysm, without rupture, unspecified (principal); I10 Essential (primary) hypertension; Z79.899 Other long term (current) drug therapy; Z86.79 Personal history of other diseases of the circulatory system; G89.29 Other chronic pain; Z28.311 Partially vaccinated for COVID-19; M54.9 Dorsalgia, unspecified; Z71.6 Tobacco abuse counseling; F17.210 Nicotine dependence, cigarettes, uncomplicated; I34.0 Nonrheumatic mitral (valve) insufficiency; F32.A Depression, unspecified
CPT/HCPCS: 34705; 37220; 71046; 80048; 83605; 84145; 85025; 85027; 86850; 86900; 86901; 87040; 87070; 87205; 93005; 93306; 94640; 94760; 96361; 96365; 99285

== ENCOUNTER → 2022-09-01 | Outpatient (CLI) | payer MEDICARE, OTHER ==
--- NOTE | 2022-09-01 13:51 | CT ---
EXAMINATION TYPE: CT angio abdomen pelvis CT DLP: 833.8 mGycm, Automated exposure control for dose reduction was used. DATE OF EXAM: 09/01/2022 1:18 PM COMPARISON: CT abdomen pelvis aorta with runoff 06/27/2022. CLINICAL INDICATION:Male, 61 years old with history of I71.43; f/u aortic stent placement TECHNIQUE: Multiple thin slice sub-millimeter images were obtained through the abdomen and pelvis bef ore and after administration of contrast. Patient was given Isovue 370, 100 cc intravenously. 3-D r econstructed images and maximum intensity projection images were obtained of the abdomen, pelvis, and lower extremities. FINDINGS: CTA Abdomen and pelvis: Mild to moderate atherosclerotic calcification of the aorta and its branches. Postsurgical changes from aortobiiliac stent graft. No definitive evidence for intramural hematoma. [place] aneurysm sac size measures 5.5 x 4.9 cm. . Previously measured 5.9 x 5.5 cm. No evidence of en doleak. Atherosclerotic plaquing is identified within the abdominal aorta. The origins of the soham c axis, superior mesenteric artery, and bilateral single renal arteries are widely patent. The proxi mal portion the CHARI is not well opacified however the mid to distal portion appears patent. The iliac vessels are normal in morphology. Atherosclerotic plaquing with some mural thrombus formation is id entified in the common iliac arteries. VISCERA: The liver, spleen, adrenal glands, kidneys, pancreas, and gallbladder are not optimally enha nced due the arterial phase utilized. LIVER: Subcentimeter hypodense focus within the right hepatic lobe which is too small to characterize . GALLBLADDER AND BILE DUCTS: Unremarkable. PANCREAS: Unremarkable. SPLEEN: Unremarkable. ADRENAL GLANDS: Unremarkable. KIDNEYS AND URETERS: No evidence of hydronephrosis or renal calculus. The kidneys enhance symmetrical ly. Bilateral renal cysts. PELVIS BLADDER: Unremarkable REPRODUCTIVE: Mild prominent prostate gland measuring 4.7 cm in transverse dimension. ABDOMEN & PELVIS STOMACH AND BOWEL: Stomach and duodenum are unremarkable. No focal wall thickening. The appendix is w ithin normal limits. No evidence of bowel obstruction. PERITONEUM: No evidence of pneumoperitoneum or free fluid. Postsurgical changes of the anterior herni a mesh repair in the pelvis. VASCULATURE: No evidence of aortic aneurysm. MUSCULOSKELETAL: No acute osseous abnormalities. Grade 1 anterolisthesis of L5 on S1 with bilateral p ars defects. Mild osteoarthritic changes of both hips. LYMPH NODES: Few mildly prominent but not enlarged right inguinal lymph nodes. SOFT TISSUE/ABDOMINAL WALL: Tiny fat filled umbilical hernia. LOWER CHEST: Mild COPD changes. Stable right lower lobe 6 mm pulmonary nodule (series 6, image 12). IMPRESSION 1. Postsurgical changes from aortobiiliac stent graft. Decreased size of [place] infrarenal abdominal aortic aneurysm from prior examination. No evidence of endoleak. 2. COPD changes with stable right lower lobe 6 mm pulmonary nodule. Follow-up CT chest in 12 months i s recommended.
== END | disposition home or self-care (01) ==
LOC: RADCTMAIN 12:06
PROVIDERS: ATTEND Surgery
DX: J44.9 Chronic obstructive pulmonary disease, unspecified (principal); I71.43 Infrarenal abdominal aortic aneurysm, without rupture; R91.1 Solitary pulmonary nodule
CPT/HCPCS: 74174; Q9967